=== PATIENT | male | born 1975 | race Caucasian/White ===

== ENCOUNTER → 2021-03-03 | Outpatient (CLI) | payer OTHER ==
--- NOTE | 2021-03-03 14:18 | KCIC ---
EXAM: Cervical spine MRI without contrast. HISTORY: Pain. Right arm numbness. TECHNIQUE: Multiplanar, multisequence magnetic resonance imaging of the cervical spine was performed without contrast. COMPARISON: None. FINDINGS: There is no significant listhesis. There is degenerative endplate remodeling with disc spac e narrowing, Schmorl's node formation and osteophytosis primarily at C5-C6. There is a chronic minima l superior endplate depression with Schmorl's node at T3. No spinal cord lesion is seen. The posterio r fossa is unremarkable. There is no suspicious osseous lesion. There is no fracture. At C2-C3, there is mild left facet arthropathy. There is no stenosis. At C3-C4, there is a disc bulge and endplate remodeling. There is mild lateral facet arthropathy. The re is no stenosis. At C4-C5, there is endplate remodeling. There is mild left facet arthropathy. There is minimal left f oraminal stenosis. At C5-C6, there are right greater than left lateral recess to extra foraminal disc osteophyte complex es superimposed on a disc bulge and endplate remodeling. There is mild bilateral facet arthropathy. T here is bilateral uncovertebral arthropathy. There is moderate bilateral foraminal stenosis. There is flattening of the ventral aspect of the spinal cord and mild central canal stenosis measuring 9.2 mm in anterior posterior dimension. At C6-C7, there is a disc bulge. There is mild left facet arthropathy. There is no stenosis. IMPRESSION: Degenerative change predominantly at C5-C6. This is associated with moderate bilateral fo raminal and mild central canal stenosis with slight flattening of the ventral aspect of spinal cord a t this level. No spinal cord signal abnormality is seen. Electronically signed by: Jessica Romero MD (03/03/2021 2:16 PM) [id number]
== END ==
LOC: KCIC MRI 13:36
PROVIDERS: ATTEND Nurse Practitioner Family
DX: M47.812 Spondylosis without myelopathy or radiculopathy, cervical region (principal); M48.02 Spinal stenosis, cervical region; M25.78 Osteophyte, vertebrae; M51.44 Schmorl's nodes, thoracic region; M48.8X2 Other specified spondylopathies, cervical region
CPT/HCPCS: 72141